=== PATIENT | female | born 1980 | race Two or more races ===

== ENCOUNTER 2020-10-20 20:16 | Emergency (ER) | payer SELFPAY ==
[~2020-10-20] VITALS: Ht 162.6 cm; Wt 73.6 kg
[2020-10-20 20:19] VITALS: BP 168/104
[2020-10-20] MEDS ORDERED: PLEASE ENTER ALLERGIES MC SCH (20:30)
[2020-10-20] MEDS ORDERED: DIPH,PERTUSS(ACELL),TET VAC/PF 0.5 ML IM-VACC ONE (20:30)
[2020-10-20] MEDS ORDERED: LIDOCAINE-MPF 1%, 5ML INFIL ONE (20:30)
[2020-10-20] MEDS ORDERED: PLEASE ENTER HEIGHT AND WEIGHT MC SCH (20:30)
[2020-10-21] MEDS ORDERED: DIPH,PERTUSS(ACELL),TET VAC/PF 0.5 ML IM-VACC ONE (00:02)
[2020-10-21] MEDS ORDERED: LIDOCAINE-MPF 1%, 5ML ONE (00:03)
[2020-10-21] MEDS ORDERED: KETOROLAC 30 MG/1 ML ONE (00:14)
--- NOTE | 2020-10-21 00:19 | NUR ---
PT AMBULATED TO ROOM, HAS C/O DOG BITE TO RIGHT FOREARM. PT SAYS A HUSKY BIT HER THEY WERE WALKING BY THE DOG, RATHER QUICKLY AND BEFORE SHE KNEW IT, THE DOG HAD BITTEN HER HARD. PT HAS A LARGE LAC TO RIGHT FOREARM, APPROX 10CM X 5CM. BLEEDING CONTROLLED. PT HAS APPROXIMATELY 6 PUNCTURE WOUNDS SURROUNDING THE LAC. BLEEDING CONTROLLED. PT DIDN'T REMEMBER WHEN SHE HAD HER LAST TETANUS SHOT, SO tDAP SHOT GIVEN, AND NOTED IN THE EMAR. PT ALSO GIVEN IM TORADOL FOR PAIN, AND SHE EXPRESSED RELIEF. MED STUDENT TO BEDSIDE TO NUMB THE LAC AREA WITH LIDOCAINE 1% AND PT TOLERATING WELL. EMT TO CLEAN AND IRRIGATE LAC, FOR SUTURE REPAIR.
[2020-10-21] MEDS ORDERED: KETOROLAC 30 MG/1 ML IM ONE (00:30)
[2020-10-21] MEDS ORDERED: BACITRACIN ZINC OINT 500U/GM, 0.9 GM ONE (00:58)
--- NOTE | 2020-10-21 01:22 | NUR ---
PTS WOUND ON RIGHT FOREARM, CLOSED WITH 5 SUTURES, AND EDGES WELL APPROXIMATED AND NO DRAINAGE NOTED. WOUND DRESSED WITH BACITRACIN, 4X4 AND KERLIX AND PT GIVEN F/U AND D/C INSTRUCTIONS WITH PRESCRIPTIONS AND SHE V/U.
== END 2020-10-21 01:26 | disposition home or self-care (01) ==
LOC: ED 20:30
DX: S51.811A Laceration without foreign body of right forearm, initial encounter (principal); S50.871A Other superficial bite of right forearm, initial encounter; S40.871A Other superficial bite of right upper arm, initial encounter; W54.0XXA Bitten by dog, initial encounter; Y93.89 Activity, other specified; Y92.410 Unspecified street and highway as the place of occurrence of the external cause; Y99.8 Other external cause status
CPT/HCPCS: 12002; 73060; 73090; 90471; 90715; 96372; 99284; J1885

== ENCOUNTER 2020-10-30 17:49 | Emergency (ER) | payer MEDICAID ==
[~2020-10-30] VITALS: Ht 165.1 cm; Wt 72.3 kg
[2020-10-30 18:09] VITALS: BP 173/107
== END 2020-10-30 18:56 | disposition home or self-care (01) ==
LOC: ED 18:26
DX: S51.811D Laceration without foreign body of right forearm, subsequent encounter (principal); W54.0XXD Bitten by dog, subsequent encounter
CPT/HCPCS: 99282